=== PATIENT | male | born 1950 | race Caucasian/White ===

== ENCOUNTER 2019-03-21 16:04 | Emergency (ER) | payer MEDICARE, BC ==
[~2019-03-21] VITALS: Ht 185.4 cm; Wt 79.4 kg
[2019-03-21] MEDS ORDERED: NKM (16:12)
[2019-03-21 16:15] VITALS: BP 121/76
--- NOTE | 2019-03-21 16:15 | NUR ---
ED Nurse Note: pt walked in due to stucked dental floss on the teeth. pt not in distress. pt is seen by galen hitchcock. will continue to monitor.
[2019-03-21 16:47] VITALS: BP 121/76
--- NOTE | 2019-03-21 16:47 | NUR ---
ER DISCHARGE NOTE: Patient is cleared to be discharged per ERMD, pt is aox4, on room air, with stable vital signs. pt was given dc and prescription instructions, pt was able to verbalize understanding, pt id band removed without complications. pt is able to ambulate with steady gait. pt took all belongings.
--- NOTE | 2019-03-21 19:41 | Emergency Room Report ---
History of Present Illness General Chief Complaint: Toothache Source: Patient Present Illness HPI 68-year-old male complaining of floss stuck between teeth since this morning. Denies bleeding. Patient states he has a dentist. Allergies: Coded Allergies: No Known Allergies (Unverified , 03/21/19) Patient History Past Medical History: HTN Pertinent Family History: none Social History: Reports: smoking; Denies: alcohol use, drug use Nursing Documentation-[facility] Past Medical History: No Stated History Review of Systems All Other Systems: negative except mentioned in HPI Physical Exam Vital Signs Date Time Temp Pulse Resp B/P (MAP) Pulse Ox O2 Delivery O2 Flow Rate FiO2 03/21/19 16:07 98.2 79 15 121/76 (91) 97 Room Air Sp02 EP Interpretation: reviewed, normal General Appearance: no apparent distress, alert, GCS 15, non-toxic ENT: normal voice, other - blue string between posterior left upper teeth Respiratory: chest non-tender, lungs clear, normal breath sounds, speaking full sentences Cardiovascular #1: regular rate, rhythm, no edema Psychiatric: normal inspection Medical Decision Making PA Attestation This patient was seen under the direct supervision of Dr. Bates, who directed all aspects of care and diagnostic interpretation. Diagnostic Impression: Primary Impression: Foreign body ER Course ED course HPI: 17-hg[age]-fet-year-old male complaining of floss stuck between left upper teeth since today. Patient well-appearing, no acute distress. Speaking in full sentences without respiratory distress. No airway obstruction. Ddx: Foreign body HPI & PE consistent with: Foreign body, dental pain. Orders/ Interventions: Attempt was made to remove the foreign body with forceps, unsuccessful to remove. Disposition: Patient Stable for discharge home. Advise to follow-up with dentist. Please note that this Emergency Department Report was dictated using [employer] hand technology software, occasionally this can lead to erroneous entry secondary to interpretation by the dictation equipment. Last Vital Signs Date Time Temp Pulse Resp B/P (MAP) Pulse Ox O2 Delivery O2 Flow Rate FiO2 03/21/19 16:47 98.2 79 15 121/76 97 Room Air Status: unchanged Disposition: HOME, SELF-CARE Condition: Stable Referrals: NON PHYSICIAN (PCP) [facility](age 2-12) - Orthodontic Clinic - Hours: Mon,Wed,, 8:15am and 1pm (new patient screening), . 1pm. Emergency clinic Friday - Friday 8:30am and 1pm, . 1pm. *Call to check if clinic is open; No appointment necessary for the first visit ( new patient screening), Arrive 15-30 minutes early as it is first come, first serve. Patient Instructions: Dental Pain Additional Instructions: Followup with dentist for removal of floss between teeth. Jaci Macario Mar 21, 2019 19:40
== END 2019-03-21 16:47 | disposition home or self-care (01) ==
LOC: EMR 16:45
DX: T18.0XXA Foreign body in mouth, initial encounter (principal); I10 Essential (primary) hypertension; F17.200 Nicotine dependence, unspecified, uncomplicated; X58.XXXA Exposure to other specified factors, initial encounter; Y92.9 Unspecified place or not applicable
CPT/HCPCS: 99281